=== PATIENT | female | born 1985 | race Caucasian/White ===

== ENCOUNTER 2018-03-08 05:45 | Inpatient (IN) | payer BC ==
[2018-03-07 15:45] VITALS: BMI 43.9
[2018-03-08] MEDS ORDERED: CITRIC ACID-SODIUM CITRATE 15 ML CUP PO ONE (06:03)
[2018-03-08] MEDS ORDERED: LACTATED RINGERS 1,000 ML IV ONE (06:03)
[2018-03-08 06:25] LABS: Basophils % (A) 0 %; Eosinophils # (A) 0.1 k/uL (0-0.7); Eosinophils % (A) 1 %; HGB 11.8 gm/dL (11.4-16.0); Lymphocytes # (A) 1.5 k/uL (1.0-4.8); Lymphocytes % (A) 14 %; MCH 28.8 pg (25.0-35.0); MCHC 31.9 g/dL (31.0-37.0); MCV 90.4 fL (80.0-100.0); Mean Platelet Volume 7.4; Monocytes # (A) 0.4 k/uL (0-1.0); Monocytes % (A) 4 %; Neutrophils # (A) 8.7 k/uL (1.3-7.7); Neutrophils % (A) 80 %; Platelet Count 219 k/uL (150-450); RBC 4.09 m/uL (3.80-5.40); RDW 14.3 % (11.5-15.5); WBC 10.9 k/uL (3.8-10.6)
[2018-03-08] MEDS ORDERED: ceFAZolin IN SWFI 2 GM/20 ML SYRINGE IVP STA (06:35)
[2018-03-08] MEDS ORDERED: NALBUPHINE 10 MG/ML VIAL (10ML MDV) ONE (07:53)
[2018-03-08] MEDS ORDERED: KETOROLAC 30 MG/ML 1 ML VIAL ONE (07:53)
[2018-03-08] MEDS ORDERED: OXYTOCIN 10 UNIT/ML 1 ML VIAL ONE (07:53)
[2018-03-08] MEDS ORDERED: MORPHINE SULFATE (PF) 0.3 MG/0.3 ML SYR ONE (07:53)
[2018-03-08] MEDS ORDERED: ONDANSETRON 4 MG/2 ML VIAL ONE (07:53)
[2018-03-08] MEDS ORDERED: Rhogam IMMUNE GLOBULIN 1,500 UNIT/1 ML IM ONE (08:45)
[2018-03-08] MEDS ORDERED: METOCLOPRAMIDE 5 MG/ML 2 ML VIAL IVP PRN (08:45)
[2018-03-08] MEDS ORDERED: diphenhydrAMINE 50 MG/ML 1 ML VIAL IVP PRN (08:45)
[2018-03-08] MEDS ORDERED: ZOLPIDEM 5 MG TAB PO PRN (08:45)
[2018-03-08] MEDS ORDERED: OXYTOCIN 20 UNITS/1000 ML NS 1,000 ML IV SCH (08:45)
[2018-03-08] MEDS ORDERED: ACETAMINOPHEN TAB 325 MG TAB PO PRN (08:45)
[2018-03-08] MEDS ORDERED: diphenhydrAMINE 50 MG CAP PO PRN (08:45)
[2018-03-08] MEDS ORDERED: NALOXONE 0.4 MG/ML 1 ML VIAL IV PRN (08:45)
[2018-03-08] MEDS ORDERED: diphenhydrAMINE 25 MG CAP PO PRN (08:45)
[2018-03-08] MEDS ORDERED: LANOLIN CREAM 5 GM TUBE TOPICAL PRN (08:45)
[2018-03-08] MEDS ORDERED: ONDANSETRON 4 MG/2 ML VIAL IVP PRN (08:45)
[2018-03-08] MEDS ORDERED: SIMETHICONE 80 MG CHEWABLE PO PRN (08:45)
--- NOTE | 2018-03-08 08:51 | P.HPOB ---
History of Present Illness H&P Date: 03/08/18 Chief Complaint: Macrosomia 32-year-old presents at 39 weeks for primary low transverse for macrosomia. Ultrasounds for the last 2 months have shown that the baby is over the 90th percentile for weight. Review of Systems All systems: negative Constitutional: Denies chills, Denies fever Eyes: denies blurred vision, denies pain Ears, nose, mouth and throat: Denies headache, Denies sore throat Cardiovascular: Denies chest pain, Denies shortness of breath Respiratory: Denies cough Gastrointestinal: Denies abdominal pain, Denies diarrhea, Denies nausea, Denies vomiting Genitourinary: Denies dysuria, Denies hematuria Musculoskeletal: Denies myalgias Integumentary: Denies pruritus, Denies rash Neurological: Denies numbness, Denies weakness Psychiatric: Denies anxiety, Denies depression Endocrine: Denies fatigue, Denies weight change Past Medical History Past Medical History: No Reported History Additional Past Medical History / Comment(s): Obstetric history: This is her first and she's had care with me since 8 weeks gestation. Blood type was A-, antibodies negative, rubella immune, RPR nonreactive, hepatitis B negative. She did receive program on December 26 at 28 weeks and 5 days. Normal 1 hour glucose tolerance test. History of Any Multi-Drug Resistant Organisms: None Reported Additional Past Surgical History / Comment(s): LEEP procedure Past Anesthesia/Blood Transfusion Reactions: Motion Sickness Past Psychological History: No Psychological Hx Reported Smoking Status: Never smoker Past Alcohol Use History: None Reported Past Drug Use History: None Reported - Past Family History Mother Family Medical History: Thyroid Disorder Medications and Allergies Home Medications Medication Instructions Recorded Confirmed Type Pnv No.95/Ferrous Fum/Folic AC 1 each PO DAILY 03/07/18 03/08/18 History [ Multivitamin Tablet] Allergies Allergy/AdvReac Type Severity Reaction Status Date / Time Penicillins Allergy Rash/Hives Verified 03/08/18 06:02 Exam Osteopathic Statement: *. No significant issues noted on an osteopathic structural exam other than those noted in the History and Physical/Consult. Vital Signs Temp Pulse Resp BP Pulse Ox 03/08/18 06:02 96.9 F L 91 16 127/78 99 Intake and Output 03/07/18 03/08/1803/08/18 22:59 06:59 14:59 Other: Weight 108.862 kg 108.862 kg Heart: Regular rate and rhythm Lungs: Clear to auscultation bilaterally Abdomen: Soft, nontender Extremities: Negative Homans sign Results Result Diagrams: 03/08/18 06:10 Abnormal Lab Results - Last 24 Hours (Table) 03/08/18 Range/Units 06:10 WBC 10.9 H (3.8-10.6) k/uL Neutrophils # 8.7 H (1.3-7.7) k/uL Assessment and Plan (1) Macrosomia affecting management of mother Current Visit: Yes Status: Acute Code(s): O36.60X0 - MATERNAL CARE FOR EXCESS GROWTH, UNSP TRIMESTER, UNSP SNOMED Code(s): 84098192 (2) 39 weeks gestation of Current Visit: Yes Status: Acute Code(s): Z3A.39 - 39 WEEKS GESTATION OF SNOMED Code(s): 39853149 Plan: 1. primary low transverse
--- NOTE | 2018-03-08 08:53 | P.OP ---
Date of Procedure: 03/08/18 Preoperative Diagnosis: 1. at 39 weeks 2. Macrosomia Postoperative Diagnosis: Same Procedure(s) Performed: Primary low transverse Anesthesia: spinal Surgeon: Damaris Ring Still Operator Brandy #1: Richardson Huddleston Estimated Blood Loss (ml): 600 IV fluids (ml): 800 Urine output (ml): 300 Pathology: none sent Condition: stable Disposition: floor Operative Findings: Normal uterus, tubes, ovaries. Viable male, Apgars 9, 9, weight 8 lbs. 11 oz. Description of Procedure: Patient was taken to the operating room where spinal anesthesia was found be adequate. She was prepped and draped in normal sterile fashion in dorsal supine position with a leftward tilt. Pfannenstiel skin incision was made the scalpel and carried through to the underlying layer of fascia with the scalpel. Fascia was incised in midline and carried bilaterally with the Moreno scissors. The superior aspect of the fascial incision was grasped with Yoel clamps elevated and the underlying rectus muscles dissected off with the Moreno's. Attention was then turned to inferior aspect of same incision which in a similar fashion was grasped tented up and the underlying rectus muscles dissected off with the Moreno's. The rectus muscles were the midline and the peritoneum was identified tented up and entered sharply with the scalpel. The incision was extended superiorly and inferiorly with good visualization of the bladder. The bladder blade was inserted and the vesicouterine peritoneum was incised the Metzenbaums then carried bilaterally and bladder flap created digitally. A low transverse incision was then made on the uterus with the scalpel. This was carried bilaterally and digital manner. 's head delivered atraumatically, nose and mouth bulb suctioned, cord clamped and cut, infant handed off to waiting nurses. Apgars 9,9, weight 8 lbs. [11 oz. Placenta delivered manually, intact with three-vessel cord. The uterus is exteriorized and cleared of all clots and debris. The uterine incision was closed with 0 Vicryl in a running locked fashion. Second layer of the same sutures used in imbricating fashion to obtain excellent hemostasis. Both ovaries and tubes appeared normal. The uterus was placed back into the abdomen. The peritoneum was reapproximated using 2-0 Vicryl in a running fashion. The muscles were reapproximated using 2-0 Vicryl in interrupted fashion. The fascia was reapproximated using 0 Vicryl in a running fashion. The subcutaneous tissues closed with 3-0 Vicryl running fashion. The skin was closed cameron. Patient tolerated the procedure well, sponge and instrument counts were correct times 2 and she was taken to the recovery room in stable condition.
[2018-03-08] MEDS: LACTATED RINGERS 1,000 ML IV SCH ×2 (13:43→22:03)
[2018-03-08] MEDS: KETOROLAC 30 MG/ML 1 ML VIAL IVP PRN ×2 (15:06→20:46)
[2018-03-08] MEDS: SENNOSIDES-DOCUSATE SODIUM 1 EACH TAB PO SCH (20:46)
[2018-03-08] MEDS: diphenhydrAMINE 50 MG/ML 1 ML VIAL IVP PRN ×2 (21:08→22:46)
[2018-03-09] MEDS: KETOROLAC 30 MG/ML 1 ML VIAL IVP PRN (03:00)
--- NOTE | 2018-03-09 07:27 | P.PNOBGPC ---
Subjective - Subjective Principal diagnosis: S/P 1*LTCS POD #1 Interval history: Pt seen and examined. Denies N/V, F/C, CP, SOB, calf pain. Patient reports: Reports appetite normal, Reports voiding normally, Reports pain well controlled, Reports ambulating normally [place]: doing well Objective - Vital Signs Latest vital signs: Vital Signs Temp Pulse Resp BP Pulse Ox 03/09/18 04:49 98.0 F 86 18 118/72 03/09/18 00:00 98.2 F 81 16 111/66 03/08/18 20:00 98.2 F 83 18 130/60 98 03/08/18 15:16 97.9 F 92 18 121/65 99 03/08/18 10:42 96.7 F L 100 18 125/60 98 03/08/18 10:12 96.8 F L 84 18 119/67 03/08/18 09:42 92 18 112/60 98 03/08/18 09:27 81 18 126/83 98 03/08/18 09:12 97.3 F L 92 18 105/66 96 03/08/18 08:57 107 H 18 101/64 03/08/18 08:42 96.6 F L 88 18 94/59 95 Intake and Output 03/08/18 03/09/18 03/09/18 22:59 06:59 14:59 Output Total 400 200 Balance -400 -200 Output: Urine 400 200 Other: Voiding Method Indwelling Catheter # Voids 1 1 - Exam Lungs: bilateral: normal Chest: Normal S1, Normal S2 Extremities: Present: normal Abdomen: Present: normal appearance, soft. Absent: distention, tenderness Incision: Present: normal, dry, intact Uterus: Present: normal, firm Assessment and Plan (1) Macrosomia affecting management of mother Current Visit: Yes Status: Resolved Code(s): O36.60X0 - MATERNAL CARE FOR EXCESS GROWTH, UNSP TRIMESTER, UNSP SNOMED Code(s): 45489714 (2) 39 weeks gestation of Current Visit: Yes Status: Resolved Code(s): Z3A.39 - 39 WEEKS GESTATION OF SNOMED Code(s): 79854934 (3) Status post primary low transverse section Current Visit: Yes Status: Acute Code(s): Z98.891 - HISTORY OF UTERINE SCAR FROM PREVIOUS SURGERY SNOMED Code(s): 731697990 Plan: 1. increase ambulation 2. po pain meds 3. reg diet
[2018-03-09 07:54] LABS: Basophils % (A) 0 %; Eosinophils # (A) 0.1 k/uL (0-0.7); Eosinophils % (A) 1 %; HCT 30.6 % (34.0-46.0); Hypochromasia Slight; Lymphocytes # (A) 1.1 k/uL (1.0-4.8); Lymphocytes % (A) 12 %; MCH 29.5 pg (25.0-35.0); MCHC 31.5 g/dL (31.0-37.0); MCV 93.5 fL (80.0-100.0); Mean Platelet Volume 7.7; Monocytes # (A) 0.4 k/uL (0-1.0); Monocytes % (A) 5 %; Neutrophils # (A) 7.6 k/uL (1.3-7.7); Neutrophils % (A) 82 %; Platelet Count 183 k/uL (150-450); RBC 3.27 m/uL (3.80-5.40); RDW 14.6 % (11.5-15.5); WBC 9.3 k/uL (3.8-10.6)
[2018-03-09] MEDS: HYDROcodone/APAP 7.5-325MG 1 EACH TAB PO PRN ×3 (08:02→20:48)
[2018-03-09 08:25] LABS: HGB 9.6 gm/dL (11.4-16.0)
--- NOTE | 2018-03-09 09:34 | P.PN ---
Progress Note - Text Progress Note Date: 03/09/18 Postoperative day 1 status post section under spinal anesthesia, and intrathecal morphine given for postoperative analgesia, patient doing well, there is no anesthesia related complications, Patient had no headache, vital signs stable , Assessment and plan= postop day 1 status post , doing well there is no anesthesia related complication.
[2018-03-09] MEDS: IBUPROFEN 600 MG TAB PO PRN ×3 (11:32→23:14)
[2018-03-09] MEDS: SENNOSIDES-DOCUSATE SODIUM 1 EACH TAB PO SCH ×2 (12:57→20:50)
[2018-03-09] MEDS: LACTATED RINGERS 1,000 ML IV SCH ×4 (14:46→14:48)
[2018-03-09 16:33] VITALS: TEMP 98.3
[2018-03-10] MEDS: HYDROcodone/APAP 7.5-325MG 1 EACH TAB PO PRN ×2 (02:14→08:56)
[2018-03-10] MEDS: IBUPROFEN 600 MG TAB PO PRN (06:29)
[2018-03-10 08:12] VITALS: BP 114/63; PULSE 81; RESP 18
--- NOTE | 2018-03-10 08:23 | P.DS ---
Providers Date of admission: 03/08/18 05:45 Expected date of discharge: 03/10/18 Attending physician: Damaris Ring Primary care physician: Stated None - Discharge Diagnosis(es) (1) Macrosomia affecting management of mother Current Visit: Yes Status: Resolved (2) 39 weeks gestation of Current Visit: Yes Status: Resolved (3) Status post primary low transverse section Current Visit: Yes Status: Acute Hospital Course: Patient presented for primary low transverse due to macrosomia. She underwent this procedure without crepitation. She'll be discharged home day #2 in stable condition to follow-up with me in 3 weeks. Plan - Discharge Summary New Discharge Prescriptions: New HYDROcodone/APAP 7.5-325MG [[place] 7.5-325] 1 each PO Q6H PRN #18 tab PRN Reason: Severe Pain Ibuprofen [Motrin] 600 mg PO Q6HR PRN #30 tab PRN Reason: Mild Pain Or Fever >= 100.5 No Action Pnv No.95/Ferrous Fum/Folic AC [ Multivitamin Tablet] 1 each PO DAILY Discharge Medication List Pnv No.95/Ferrous Fum/Folic AC [ Multivitamin Tablet] 1 each PO DAILY [History] HYDROcodone/APAP 7.5-325MG [[place] 7.5-325] 1 each PO Q6H PRN #18 tab 03/10/18 [ Rx] Ibuprofen [Motrin] 600 mg PO Q6HR PRN #30 tab 03/10/18 [Rx] Follow up Appointment(s)/Referral(s): Damaris Ring DO [Doctor of Osteopathic Medicine] - 3 Weeks Discharge Disposition: HOME SELF-CARE
[2018-03-10] MEDS: SENNOSIDES-DOCUSATE SODIUM 1 EACH TAB PO SCH (08:56)
== END 2018-03-10 11:30 | disposition home or self-care (01) | DRG 788 ==
LOC: 4FBP 05:45
PROVIDERS: ADMIT Obstetrics & Gynecology; ATTEND Obstetrics & Gynecology
PROC: 10D00Z1 Extraction of Products of Conception, Low, Open Approach (ICD-10-PCS; principal; 2018-03-08 08:00)
DX: O36.63X0 Maternal care for excessive fetal growth, third trimester, not applicable or unspecified (principal); Z37.0 Single live birth; Z3A.39 39 weeks gestation of pregnancy; Z88.0 Allergy status to penicillin; Z83.49 Family history of other endocrine, nutritional and metabolic diseases
CPT/HCPCS: 85025; 85461; 86850; 86870; 86880; 86900; 86901

== ENCOUNTER → 2018-07-06 | Outpatient (CLI) | payer OTHER | END | disposition home or self-care (01) | LOC: LABWHC1 13:14 | PROVIDERS: ATTEND Family Medicine | DX: Z00.00 Encounter for general adult medical examination without abnormal findings (principal); E66.9 Obesity, unspecified; Z84.89 Family history of other specified conditions | CPT/HCPCS: 36415; 84439; 84443 ==

== ENCOUNTER 2019-04-02 21:37 | Emergency (ER) | payer OTHER ==
[2019-04-02 21:47] VITALS: RESP 18
[2019-04-02] MEDS ORDERED: FAMOTIDINE 20 MG/2 ML VIAL IV STA (21:55)
[2019-04-02] MEDS ORDERED: methylPREDNISolone SOD SUCCI 125 MG/2 ML VIAL IV STA (21:55)
[2019-04-02] MEDS ORDERED: diphenhydrAMINE 50 MG/ML 1 ML VIAL IVP STA (21:55)
[2019-04-02] MEDS ORDERED: SODIUM CHLORIDE 0.9% 1,000 ML IV ONE (21:56)
[2019-04-02 22:19] LABS: Basophils % (A) 0 %; Eosinophils # (A) 0.1 k/uL (0-0.7); Eosinophils % (A) 1 %; HCT 38.7 % (34.0-46.0); HGB 12.6 gm/dL (11.4-16.0); Lymphocytes # (A) 3.7 k/uL (1.0-4.8); Lymphocytes % (A) 26 %; MCH 27.8 pg (25.0-35.0); MCHC 32.5 g/dL (31.0-37.0); MCV 85.8 fL (80.0-100.0); Mean Platelet Volume 6.3; Monocytes # (A) 0.7 k/uL (0-1.0); Monocytes % (A) 5 %; Neutrophils # (A) 9.5 k/uL (1.3-7.7); Neutrophils % (A) 67 %; Platelet Count 334 k/uL (150-450); RBC 4.51 m/uL (3.80-5.40); RDW 14.3 % (11.5-15.5); WBC 14.2 k/uL (3.8-10.6)
[2019-04-02 22:22] LABS: ALT 14 U/L (9-52); AST 19 U/L (14-36); African American GFR (CKD) >90 (>60 ml/min/1.73 sqM); Albumin 4.7 g/dL (3.5-5.0); Alkaline Phosphatase 55 U/L (38-126); Anion Gap 10 mmol/L; Blood Urea Nitrogen 19 mg/dL (7-17); Carbon Dioxide 22 mmol/L (22-30); Chloride 106 mmol/L (98-107); Glucose 107 mg/dL (74-99); Potassium 4.2 mmol/L (3.5-5.1); Sodium 138 mmol/L (137-145); Total Bilirubin 0.5 mg/dL (0.2-1.3); Total Protein 7.9 g/dL (6.3-8.2)
--- NOTE | 2019-04-02 22:38 | ED ---
Allergic Reaction HPI - General Chief complaint: Allergic Reaction Stated complaint: Allergic Reaction Time Seen by Provider: 04/02/19 21:48 Source: patient, RN notes reviewed Mode of arrival: ambulatory Limitations: no limitations - History of Present Illness Initial Comments: 33-year-old female presents emergency Department chief complaint ALLERGIC re action. Patient states his started overnight states in [place] night she fell. She woke up with diffuse hives. Patient has been seen at [facility] was given a dose of steroid chest pain. Patient's symptoms worsen today. Patient states that she also recently took Vistaril. Patient states that is not helping this time. Patient has a rash, hives diffusely. No difficulty swallowing or difficulty breathing. - Related Data Home Medications Medication Instructions Recorded Confirmed Pnv No.95/Ferrous Fum/Folic AC 1 each PO DAILY 03/07/18 03/08/18 [ Multivitamin Tablet] Previous Rx's Medication Instructions Recorded HYDROcodone/APAP 7.5-325MG [[place] 1 each PO Q6H PRN #18 tab 03/10/18 7.5-325] Ibuprofen [Motrin] 600 mg PO Q6HR PRN #30 tab 03/10/18 Famotidine [Pepcid] 20 mg PO BID #28 tablet 04/02/19 diphenhydrAMINE [Benadryl] 50 mg PO QID PRN #20 capsule 04/02/19 predniSONE 50 mg PO DAILY #5 tab 04/02/19 Allergies Allergy/AdvReac Type Severity Reaction Status Date / Time Penicillins Allergy Rash/Hives Verified 03/08/18 06:02 Review of Systems ROS Statement: Those systems with pertinent positive or pertinent negative responses have been documented in the HPI. ROS Other: All systems not noted in ROS Statement are negative. Past Medical History Past Medical History: No Reported History Additional Past Medical History / Comment(s): Obstetric history: This is her first and she's had care with me since 8 weeks gestation. Blood type was A-, antibodies negative, rubella immune, RPR nonreactive, hepati tis B negative. She did receive program on December 26 at 28 weeks and 5 days. Normal 1 hour glucose tolerance test. History of Any Multi-Drug Resistant Organisms: None Reported Additional Past Surgical History / Comment(s): LEEP procedure Past Anesthesia/Blood Transfusion Reactions: Motion Sickness Past Psychological History: No Psychological Hx Reported Smoking Status: Never smoker Past Alcohol Use History: None Reported Past Drug Use History: None Reported - Past Family History Mother Family Medical History: Thyroid Disorder General Exam Limitations: no limitations General appearance: alert, in no apparent distress Head exam: Present: atraumatic, normocephalic, normal inspection Eye exam: Present: normal appearance, PERRL, EOMI. Absent: scleral icterus, conjunctival injection, periorbital swelling ENT exam: Present: normal exam, normal oropharynx, mucous membranes moist Neck exam: Present: normal inspection, full ROM. Absent: tenderness, meningismus, lymphadenopathy Respiratory exam: Present: normal lung sounds bilaterally. Absent: respiratory distress, wheezes, rales, rhonchi, stridor Cardiovascular Exam: Present: regular rate, normal rhythm, normal heart sounds. Absent: systolic murmur, diastolic murmur, rubs, gallop, clicks GI/Abdominal exam: Present: soft, normal bowel sounds. Absent: distended, te nderness, guarding, rebound, rigid Back exam: Absent: CVA tenderness (R), CVA tenderness (L) Neurological exam: Present: alert, oriented X3 Skin exam: Present: warm, dry, intact, normal color, rash, urticaria Course Vital Signs 04/02/19 21:41 Temperature 97.7 F Pulse Rate 81 Respiratory 18 Rate Blood Pressure 144/72 O2 Sat by Pulse 99 Oximetry Medical Decision Making - Medical Decision Making 33-year-old female presented for urticaria. Patient had diffuse urticaria patient is improved Mental Pepcid and Benadryl. Patient Is Having Moderate Reaction at This Time. Patient Will Be Discharged with Prednisone 50 Mg Daily, Benadryl 50 Mg Every 6 Hours, Pepcid Twice a Day and Parameters Were Discussed. - Lab Data Result diagrams: 04/02/19 22:05 04/02/19 22:05 Lab Results 04/02/19 04/02/19 Range/Units 22:05 22:05 WBC 14.2 H (3.8-10.6) k/uL RBC 4.51 (3.80-5.40) m/uL Hgb 12.6 (11.4-16.0) gm/dL Hct 38.7 (34.0-46.0) % MCV 85.8 (80.0-100.0) fL MCH 27.8 (25.0-35.0) pg MCHC 32.5 (31.0-37.0) g/dL RDW 14.3 (11.5-15.5) % Plt Count 334 (150-450) k/uL Neutrophils % 67 % Lymphocytes % 26 % Monocytes % 5 % Eosinophils % 1 % Basophils % 0 % Neutrophils # 9.5 H (1.3-7.7) k/uL Lymphocytes # 3.7 (1.0-4.8) k/uL Monocytes # 0.7 (0-1.0) k/uL Eosinophils # 0.1 (0-0.7) k/uL Basophils # 0.0 (0-0.2) k/uL Sodium 138 (137-145) mmol/L Potassium 4.2 (3.5-5.1) mmol/L Chloride 106 (98-107) mmol/L Carbon Dioxide 22 (22-30) mmol/L Anion Gap 10 mmol/L BUN 19 H (7-17) mg/dL Creatinine 0.67 (0.52-1.04) mg/dL Est GFR (CKD-EPI)AfAm >90 (>60 ml/min/1.73 sqM) Est GFR (CKD-EPI)NonAf >90 (>60 ml/min/1.73 sqM) Glucose 107 H (74-99) mg/dL Calcium 10.0 (8.4-10.2) mg/dL Total Bilirubin 0.5 (0.2-1.3) mg/dL AST 19 (14-36) U/L ALT 14 (9-52) U/L Alkaline Phosphatase 55 (38-126) U/L Total Protein 7.9 (6.3-8.2) g/dL Albumin 4.7 (3.5-5.0) g/dL Disposition Clinical Impression: Allergic reaction, Urticaria Disposition: HOME SELF-CARE Condition: Stable Instructions (If sedation given, give patient instructions): Urticaria (ED) Additional Instructions: Please return to the Emergency Department if symptoms worsen or any other concerns. Prescriptions: diphenhydrAMINE [Benadryl] 50 mg PO QID PRN #20 capsule PRN Reason: Allergic Reaction Famotidine [Pepcid] 20 mg PO BID #28 tablet predniSONE 50 mg PO DAILY #5 tab Is patient prescribed a controlled substance at d/c from ED?: No Referrals: Song Masters DO [Primary Care Provider] - 1-2 days Time of Disposition: 23:41
[2019-04-02 23:45] VITALS: BP 119/74; PULSE 61; TEMP 98
== END 2019-04-02 23:45 | disposition home or self-care (01) ==
LOC: EC 21:37
DX: L50.0 Allergic urticaria (principal); Z88.0 Allergy status to penicillin
CPT/HCPCS: 36415; 80053; 85025; 99283; 96374; 96375 ×2; 96361; J1200; J2930

== ENCOUNTER 2020-09-26 08:16 | Emergency (ER) | payer OTHER ==
[2020-09-26] MEDS ORDERED: LIDOCAINE 1% INJ 10MG/ML (20 ML MDV) SQ ONE (08:19)
[2020-09-26 08:20] VITALS: BP 117/70; PULSE 65; RESP 20; TEMP 98
[2020-09-26] MEDS ORDERED: HYDROmorphone 0.5 MG/0.5 ML SYRINGE IM STA (08:35)
--- NOTE | 2020-09-26 08:58 | ED ---
Skin/Abscess/FB HPI - General Chief complaint: Skin/Abscess/Foreign Body Stated complaint: ingrown hair Time Seen by Provider: 09/26/20 08:19 Source: patient Mode of arrival: ambulatory Limitations: no limitations - History of Present Illness Initial comments: 35-year-old female presents emergency department today for chief complaint of pilonidal cyst. Patient states she was diagnosed yesterday with upon lateral cyst at an urgent care and prescribed Bactrim. Patient states she's had symptoms now for 5 day she states is becoming more more painful she states she can barely sit or bend over secondary to the pain she denies a fevers chills or malaise or constitutional symptoms. Upon arrival patient is afebrile nontoxic in appearance and overall well-appearing - Related Data Home Medications Medication Instructions Recorded Confirmed Pnv No.95/Ferrous Fum/Folic AC 1 each PO DAILY 03/07/18 01/31/20 [ Multivitamin Tablet] Previous Rx's Medication Instructions Recorded HYDROcodone/APAP 5-325MG [[place] 1 each PO Q4HR PRN #18 tab 02/01/20 5-325] Ibuprofen [Motrin] 600 mg PO Q6HR PRN #40 tab 02/01/20 Clindamycin [Cleocin] 450 mg PO Q8H 7 Days #63 capsule 09/26/20 Allergies Allergy/AdvReac Type Severity Reaction Status Date / Time Penicillins Allergy Rash/Hives Verified 09/26/20 08:19 Review of Systems ROS Statement: Those systems with pertinent positive or pertinent negative responses have been documented in the HPI. ROS Other: All systems not noted in ROS Statement are negative. Past Medical History Past Medical History: No Reported History Additional Past Medical History / Comment(s): Obstetric history: This is her first and she's had care with me since 8 weeks gestation. Blood type was A-, antibodies negative, rubella immune, RPR nonreactive, hepatitis B negative. She did receive program on December 26 at 28 weeks and 5 days. Normal 1 hour glucose tolerance test. History of Any Multi-Drug Resistant Organisms: None Reported Past Surgical History: Section Additional Past Surgical History / Comment(s): LEEP procedure Past Anesthesia/Blood Transfusion Reactions: Motion Sickness Past Psychological History: No Psychological Hx Reported Smoking Status: Never smoker Past Alcohol Use History: Occasional Past Drug Use History: Marijuana - Past Family History Mother Family Medical History: Thyroid Disorder General Exam - General Exam Comments Initial Comments: General: The patient is awake and alert, in no distress, and does not appear acutely ill. Eye: Pupils are equal, round and reactive to light, extra-ocular movements are intact. No nystagmus. There is normal conjunctiva bilaterally. No signs of icterus. Musculoskeletal: Normal ROM, no tenderness. Strength 5/5. Sensation intact. Pulses equal bilaterally 2+. Neurological: A&O x 3. CN II-XII intact grossly, There are no obvious motor or sensory deficits. Coordination appears grossly intact. Speech is normal. Skin: Skin is warm and dry and no rashes. 2.5x2.5cm circular area of redness just to the left of the gluteal cleft, painful to touch. Psychiatric: Cooperative, appropriate mood & affect, normal judgment. Limitations: no limitations Course Vital Signs 09/26/20 08:17 Temperature 98 F Pulse Rate 65 Respiratory 20 Rate Blood Pressure 117/70 O2 Sat by Pulse 100 Oximetry Procedures - Incision & Drainage Consent Obtained: verbal consent Indication: pilonidal cyst Site: buttock Anesthetic Used: lidocaine 1% Amount (mLs): 1 I&D Cleaning Method: Iodine Sterile Field Used?: No Scalpel Used: #11 Needle Aspiration Performed?: Yes Irrigation Performed?: No I&D Drainage Obtained: Pus, Blood Culture Obtained?: Yes Patient Tolerated Procedure: well, no complications Medical Decision Making - Medical Decision Making Physical examination consistent with previous diagnosis of pilonidal cyst. needle aspirated. incised and drained. cultures pending. pt abx regime changed. discussed general surgery f/u and return parameters. pt discharged appearing well. Disposition Clinical Impression: Pilonidal abscess Disposition: HOME SELF-CARE Condition: Good Instructions (If sedation given, give patient instructions): Abscess Incision and Drainage (ED) Additional Instructions: Please use medication as discussed. Please follow-up with family doctor in the next 2 days. Please return to emergency room if the symptoms increase or worsen or for any other concerns. Prescriptions: Clindamycin [Cleocin] 450 mg PO Q8H 7 Days #63 capsule Is patient prescribed a controlled substance at d/c from ED?: No Referrals: Song Masters DO [Primary Care Provider] - 1-2 days Nir Allen MD [Medical Doctor] - 1-2 days Time of Disposition: :57
== END 2020-09-26 09:09 | disposition home or self-care (01) ==
LOC: EC 08:16
DX: L05.01 Pilonidal cyst with abscess (principal); Z88.0 Allergy status to penicillin
CPT/HCPCS: 87070; 87205; 99283; 10160; 96372; J2001; J1170

== ENCOUNTER 2020-11-05 06:42 | Day surgery (SDC) | payer OTHER ==
[2020-10-31 12:57] VITALS: BMI 33.8
[~2020-11-05 06:42] MED LIST: ACETAMINOPHEN TAB 500 MG TAB PO PRN; HEPARIN SODIUM,PORCINE/PF 5,000 UNIT/0.5 ML SYRINGE SQ PRN; metroNIDAZOLE-NS PMX 500 MG in SALINE 1 100ML.BAG IVPB PRN
[2020-11-05] MEDS ORDERED: LIDOCAINE 1% (10MG/ML) FOR IV START INTRADERMA PRN (06:50)
[2020-11-05] MEDS ORDERED: DEXAMETHASONE SOD PHOSPHATE 4 MG/ML 1 ML VIAL IV ONE (06:50)
[2020-11-05] MEDS ORDERED: LACTATED RINGERS 1,000 ML IV SCH (06:50)
[2020-11-05] MEDS ORDERED: SCOPOLAMINE 1.5MG/72HR PATCH TRANSDERM ONE (06:50)
[2020-11-05] MEDS ORDERED: ONDANSETRON 4 MG/2 ML VIAL IVP ONE (06:50)
[2020-11-05] MEDS ORDERED: HYDROmorphone 0.5 MG/0.5 ML SYRINGE IVP PRN (07:00)
[2020-11-05] MEDS ORDERED: MIDAZOLAM 2 MG/2 ML VIAL IV ONE (07:30)
[2020-11-05 07:37] VITALS: TEMP 97.7
[2020-11-05] MEDS ORDERED: KETAMINE 10 MG/ML 20 ML VIAL ONE (08:10)
[2020-11-05] MEDS ORDERED: PROPOFOL 10 MG/ML 20 ML VIAL IV ONE (08:10)
[2020-11-05] MEDS ORDERED: MIDAZOLAM 2 MG/2 ML VIAL ONE (08:10)
[2020-11-05] MEDS ORDERED: fentaNYL (PF) 50 MCG/ML 2 ML AMP ONE (08:10)
[2020-11-05] MEDS ORDERED: LIDOCAINE 1%-EPI 1:100,000 20 ML VIAL SQ ONE ×2 (08:33→08:34)
--- NOTE | 2020-11-05 08:52 | P.GSHP ---
History of Present Illness H&P Date: 11/05/20 Chief Complaint: Pilonidal cyst 's is a 35-year-old female who presents today for excision of pilonidal cyst. Patient has had issues with chronic inflammation the area. She's had a previous incision and drainage. Past Medical History Past Medical History: No Reported History Additional Past Medical History / Comment(s): pilonidal cyst History of Any Multi-Drug Resistant Organisms: None Reported Past Surgical History: Section Additional Past Surgical History / Comment(s): LEEP procedure, C/S x2 Past Anesthesia/Blood Transfusion Reactions: Motion Sickness Smoking Status: Never smoker - Past Family History Mother Family Medical History: Thyroid Disorder Medications and Allergies Home Medications Medication Instructions Recorded Confirmed Type No Known Home Medications 10/31/20 10/31/20 History Allergies Allergy/AdvReac Type Severity Reaction Status Date / Time Penicillins Allergy Rash/Hives Verified 11/05/20 06:56 Surgical - Exam Vital Signs Temp Pulse Resp BP Pulse Ox 97.7 F 80 16 131/82 100 11/05/20 07:20 11/05/20 07:20 11/05/20 07:20 11/05/20 07:20 11/05/20 07:20 - General well developed, well nourished, no distress - Eyes PERRL - ENT normal pinna - Neck no masses - Respiratory normal expansion - Cardiovascular Rhythm: regular - Abdomen Abdomen: soft, non tender - Integumentary Upon L cyst over the coccyx Assessment and Plan Assessment: Prognosis. We'll perform excision. Patient is aware that we will be packed.
--- NOTE | 2020-11-05 08:54 | P.OP ---
Date of Procedure: 11/05/20 Preoperative Diagnosis: Pilonidal cyst Postoperative Diagnosis: Pilonidal cyst Procedure(s) Performed: Excision of pilonidal cyst Anesthesia: RADHA Surgeon: Stephen Ash Estimated Blood Loss (ml): 5 Pathology: other (Pilonidal cyst) Condition: stable Disposition: PACU Operative Findings: The patient's placed on the operative table in the prone position. She received IV sedation. Her buttocks were prepped and draped using sterile fashion. The prognosis was visualized. Elliptical skin incision was made around the pilonidal cyst. The nasal left cautery the paralysis was excised. The Bovie hemostasis. The wound was referred bleeding. There is no bleeding seen. The w ound was then packed with dry Kerlix. Patient top she will was sent to recovery room stable condition.
[2020-11-05 09:08] VITALS: RESP 16
[2020-11-05] MEDS ORDERED: IBUPROFEN 200 MG TAB PO ONE (09:44)
[2020-11-05 09:52] VITALS: BP 106/58; PULSE 69
== END 2020-11-05 09:57 | disposition home health service (06) ==
LOC: OR 06:42
PROVIDERS: ATTEND Surgery
DX: L05.91 Pilonidal cyst without abscess (principal); Z98.891 History of uterine scar from previous surgery; Z98.890 Other specified postprocedural states; Z83.49 Family history of other endocrine, nutritional and metabolic diseases; Z88.0 Allergy status to penicillin
CPT/HCPCS: 81025; 88304; 11770; J2250; J1100; J0690; J2405; J3010; J2704; J1644

== ENCOUNTER 2021-12-04 12:29 | Emergency (ER) | payer OTHER ==
[2021-12-04 13:36] VITALS: RESP 18
[2021-12-04 18:21] LABS: ALT 13 U/L (4-34); AST 34 U/L (14-36); African American GFR (CKD) >90 (>60 ml/min/1.73 sqM); Albumin 5.1 g/dL (3.5-5.0); Alkaline Phosphatase 41 U/L (38-126); Anion Gap 10 mmol/L; Blood Urea Nitrogen 18 mg/dL (7-17); Calcium 9.3 mg/dL (8.4-10.2); Carbon Dioxide 22 mmol/L (22-30); Chloride 105 mmol/L (98-107); Glucose 86 mg/dL (74-99); Non-African American GFR(CKD) >90 (>60 ml/min/1.73 sqM); Potassium 4.4 mmol/L (3.5-5.1); Sodium 137 mmol/L (137-145); Total Bilirubin 0.8 mg/dL (0.2-1.3); Total Protein 8.3 g/dL (6.3-8.2)
[2021-12-04 18:23] LABS: Anisocytosis Slight; Basophils % (A) 0 %; Eosinophils # (A) 0.1 k/uL (0-0.7); Eosinophils % (A) 2 %; HCT 29.9 % (34.0-46.0); HGB 8.5 gm/dL (11.4-16.0); Hypochromasia Marked; Lymphocytes # (A) 1.9 k/uL (1.0-4.8); Lymphocytes % (A) 34 %; MCH 19.3 pg (25.0-35.0); MCHC 28.5 g/dL (31.0-37.0); MCV 67.8 fL (80.0-100.0); Mean Platelet Volume 10.1; Microcytosis Marked; Monocytes # (A) 0.3 k/uL (0-1.0); Monocytes % (A) 6 %; Neutrophils # (A) 3.1 k/uL (1.3-7.7); Neutrophils % (A) 56 %; Platelet Count 107 k/uL (150-450); RBC 4.41 m/uL (3.80-5.40); WBC 5.6 k/uL (3.8-10.6)
[2021-12-04 18:32] VITALS: BP 119/77; PULSE 73; TEMP 97.7
--- NOTE | 2021-12-04 18:45 | ED ---
General Adult HPI - General Chief complaint: Recheck/Abnormal Lab/Rx Stated complaint: "needs blood infusion" Time Seen by Provider: 12/04/21 14:42 Source: patient Mode of arrival: ambulatory Limitations: no limitations - History of Present Illness Initial comments: Patient is a 36 year old otherwise healthy female who presents to the emergency department for evaluation of low hemoglobin. Patient states was advised to come to the emergency department via phone call with hemoglobin results around 7. Patient states she got her blood drawn at her primary care provider's office a couple days ago due to feeling lightheaded over the past couple weeks with 2 syncopal episodes. Patient states during the first episode she was sitting in sauna and during the second episode she had just finished walking with her kids. Patient denies head trauma during these episodes. Patient states during these episodes she feels lightheaded and dizzy. She does not feel lightheaded or dizzy currently. She denies chest pain and shortness of breath. Denies history of arrhythmia and other cardiac issues. Denies rash on family history of blood disorders. Denies abdominal pain, nausea, vomiting, blood in the stool, blood in the urine. Patient does admit to having very heavy periods last 4 or 5 days. States she has never been diagnosed with anemia before. - Related Data Previous Rx's Medication Instructions Recorded Acetaminophen Tab [Tylenol] 650 mg PO Q6H #30 tab 11/05/20 Docusate [Colace] 100 mg PO BID #20 capsule 11/05/20 Ibuprofen [Motrin] 600 mg PO Q6HR PRN #40 tab 11/05/20 oxyCODONE HCL [OxyIR] 5 mg PO Q6H PRN 3 Days #10 tab 11/05/20 Allergies Allergy/AdvReac Type Severity Reaction Status Date / Time Penicillins Allergy Rash/Hives Verified 12/04/21 13:36 Review of Systems ROS Statement: Those systems with pertinent positive or pertinent negative responses have been documented in the HPI. ROS Other: All systems not noted in ROS Statement are negative. Past Medical History Past Medical History: No Reported History Additional Past Medical History / Comment(s): pilonidal cyst History of Any Multi-Drug Resistant Organisms: None Reported Past Surgical History: Section Additional Past Surgical History / Comment(s): LEEP procedure, C/S x2 Past Anesthesia/Blood Transfusion Reactions: Motion Sickness Past Psychological History: No Psychological Hx Reported Smoking Status: Never smoker Past Alcohol Use History: None Reported Past Drug Use History: Marijuana - Past Family History Mother Family Medical History: Thyroid Disorder General Exam Limitations: no limitations General appearance: alert, in no apparent distress Head exam: Present: atraumatic, normocephalic, normal inspection Respiratory exam: Present: normal lung sounds bilaterally. Absent: respiratory distress, wheezes, rales, rhonchi, stridor Cardiovascular Exam: Present: regular rate, normal rhythm, normal heart sounds. Absent: systolic murmur, diastolic murmur, rubs, gallop, clicks GI/Abdominal exam: Present: soft, normal bowel sounds. Absent: distended, tenderness, guarding, rebound, rigid Rectal exam: Present: hemorrhoids (external ). Absent: heme (+) stool, fecal impaction Neurological exam: Present: alert, oriented X3, CN II-XII intact Psychiatric exam: Present: normal affect, normal mood Skin exam: Present: warm, dry, intact, normal color. Absent: rash Course Vital Signs 12/04/21 12/04/21 13:33 18:29 Temperature 98.7 F 97.7 F Pulse Rate 81 73 Respiratory 18 18 Rate Blood Pressure 140/73 119/77 O2 Sat by Pulse 100 100 Oximetry EKG Findings - EKG Comments: EKG Findings:: EKG taken at 17:33. Sinus rhythm, no ST or T-wave normalities. Educate 79. OH interval 128. QRS duration 85. QTc 406 Medical Decision Making - Medical Decision Making This is a 36-year-old female who presents for evaluation of low hemoglobin and syncopal episodes. Thorough history and examination were performed. Patient is well-appearing and in no apparent distress. There is no pallor. No hematemesis, hematochezia, or melena. Patient admits to having very heavy menstrual periods. Patient is feeling well now without any lightheadedness, dizziness, chest pain, shortness of breath. Laboratory studies significant for microcytic hypochromic anemia with hemoglobin 8.5, decreased from patient's last hemoglobin in January 2020 at 9.9. Hemoglobin is negative. EKG shows normal sinus rhythm without ST or T-wave abnormalities. Results discussed with patient. Patient is well appearing, feels well, and has stable hemoglobin. Symptoms maybe due to menorrhagia or iron deficiency. She will be discharged with instruction to follow-up with her primary care provider for further evaluation and management of her low hemoglobin. Strict return parameters discussed. Patient verbalizes understanding and is agreeable to this plan. Dr. Blakely is my attending. - Lab Data Result diagrams: 12/04/21 17:31 12/04/21 17:31 Lab Results 12/04/21 12/04/21 12/04/21 Range/Units 17:31 17:31 17:31 WBC 5.6 (3.8-10.6) k/uL RBC 4.41 (3.80-5.40) m/uL Hgb 8.5 L (11.4-16.0) gm/dL Hct 29.9 L (34.0-46.0) % MCV 67.8 L (80.0-100.0) fL MCH 19.3 L (25.0-35.0) pg MCHC 28.5 L (31.0-37.0) g/dL RDW 18.0 H (11.5-15.5) % Plt Count 107 L (150-450) k/uL MPV 10.1 Neutrophils % 56 % Lymphocytes % 34 % Monocytes % 6 % Eosinophils % 2 % Basophils % 0 % Neutrophils # 3.1 (1.3-7.7) k/uL Lymphocytes # 1.9 (1.0-4.8) k/uL Monocytes # 0.3 (0-1.0) k/uL Eosinophils # 0.1 (0-0.7) k/uL Basophils # 0.0 (0-0.2) k/uL Hypochromasia Marked Anisocytosis Slight Microcytosis Marked Sodium 137 (137-145) mmol/L Potassium 4.4 (3.5-5.1) mmol/L Chloride 105 (98-107) mmol/L Carbon Dioxide 22 (22-30) mmol/L Anion Gap 10 mmol/L BUN 18 H (7-17) mg/dL Creatinine 0.49 L (0.52-1.04) mg/dL Est GFR (CKD-EPI)AfAm >90 (>60 ml/min/1.73 sqM) Est GFR (CKD-EPI)NonAf >90 (>60 ml/min/1.73 sqM) Glucose 86 (74-99) mg/dL Calcium 9.3 (8.4-10.2) mg/dL Total Bilirubin 0.8 (0.2-1.3) mg/dL AST 34 (14-36) U/L ALT 13 (4-34) U/L Alkaline Phosphatase 41 (38-126) U/L Total Protein 8.3 H (6.3-8.2) g/dL Albumin 5.1 H (3.5-5.0) g/dL Stool Occult Blood Negative (Negative) Disposition Clinical Impression: Microcytic hypochromic anemia Disposition: HOME SELF-CARE Condition: Good Instructions (If sedation given, give patient instructions): Anemia (ED) Additional Instructions: Please follow-up with primary care provider for further evaluation of low hemoglobin. Return to the emergency department if you experience new, concerning, or worsening symptoms. Is patient prescribed a controlled substance at d/c from ED?: No Referrals: Duke Polanco DO [Primary Care Provider] - 1-2 days Time of Disposition: 18:44
== END 2021-12-04 19:08 | disposition home or self-care (01) ==
LOC: EC 12:29
DX: D50.9 Iron deficiency anemia, unspecified (principal); Z88.0 Allergy status to penicillin
CPT/HCPCS: 36415; 80053; 82272; 85025; 93005; 99283

== ENCOUNTER → 2021-12-22 | Outpatient (CLI) | payer OTHER ==
--- NOTE | 2021-12-22 15:02 | US ---
EXAMINATION TYPE: US pelvic complete DATE OF EXAM: 12/22/2021 COMPARISON: NONE CLINICAL HISTORY: N92.0 Excessive and frequent menstruation with reg. heavy cycles, passing out due t o blood loss TECHNIQUE: TA. Transabdominal sonographic images of the pelvis were acquired. Date of LMP: 12-15-21 EXAM MEASUREMENTS: Uterus: 9.5 cm Endometrial Stripe: 1.1 cm Right Ovary: 1.7 x 2.0 x 1.3 cm Left Ovary: 3.0 x 2.3 x 2.2 cm 1. Uterus: Anteverted wnl 2. Endometrium: 2.5 x 2.2 x 1.2cm obvious polyp with vascular stalk seen 3. Right Ovary: wnl 4. Left Ovary: 2.3 x 1.8 x 1.6cm cystic area 5. Bilateral Adnexa: wnl 6. Posterior cul-de-sac: wnl IMPRESSION: 1. There is a 2.5 cm endometrial polyp. APPEALS REPRESENTATIVE consultation suggested. 2. Simple appearing 2.3 cm left ovarian cyst.
== END | disposition home or self-care (01) ==
LOC: RADUSWWP 14:11
PROVIDERS: ATTEND Family Medicine
DX: N92.0 Excessive and frequent menstruation with regular cycle (principal); N83.202 Unspecified ovarian cyst, left side
CPT/HCPCS: 76856

== ENCOUNTER 2022-01-12 06:08 | Day surgery (SDC) | payer OTHER ==
[2022-01-08 16:00] VITALS: BMI 28.5
--- NOTE | 2022-01-12 00:01 | P.HPOB ---
History of Present Illness H&P Date: 01/11/22 Chief Complaint: Menorrhagia 36 year old presents for D&C polypectomy, hysteroscopy and endometrial ablation with NovaSure. Review of Systems All systems: negative Constitutional: Denies chills, Denies fever Eyes: denies blurred vision, denies pain Ears, nose, mouth and throat: Denies headache, Denies sore throat Cardiovascular: Denies chest pain, Denies shortness of breath Respiratory: Denies cough Gastrointestinal: Denies abdominal pain, Denies diarrhea, Denies nausea, Denies vomiting Genitourinary: Denies dysuria, Denies hematuria Musculoskeletal: Denies myalgias Integumentary: Denies pruritus, Denies rash Neurological: Denies numbness, Denies weakness Psychiatric: Denies anxiety, Denies depression Endocrine: Denies fatigue, Denies weight change Past Medical History Past Medical History: No Reported History Additional Past Medical History / Comment(s): pilonidal cyst., menorrhagia, anemic -received 2 iron infusions . History of Any Multi-Drug Resistant Organisms: None Reported Past Surgical History: Section Additional Past Surgical History / Comment(s): LEEP procedure, C/S x2., pilonidal cyst Past Anesthesia/Blood Transfusion Reactions: Postoperative Nausea & Vomiting (PONV) Additional Past Anesthesia/Blood Transfusion Reaction / Comment(s): occasional rash post-op. never received a blood transfusion Past Psychological History: No Psychological Hx Reported Smoking Status: Former smoker Past Alcohol Use History: Rare Additional Past Alcohol Use History / Comment(s): quit smoking 5 years ago (2017), hx of 1 ppd. Past Drug Use History: Marijuana Additional Drug Use History / Comment(s): daily use - Past Family History Mother Family Medical History: Thyroid Disorder Medications and Allergies Home Medications Medication Instructions Recorded Confirmed Type Ibuprofen [Motrin] 800 mg PO DIRECTED PRN 01/08/22 01/08/22 History Multivit/Iron Sulf/Folic Acid 1 each PO DAILY 01/08/22 01/08/22 History [Multivitamin with Iron] Allergies Allergy/AdvReac Type Severity Reaction Status Date / Time Penicillins Allergy Rash/Hives Verified 01/08/22 15:50 Exam Osteopathic Statement: *. No significant issues noted on an osteopathic structural exam other than those noted in the History and Physical/Consult. Heart: Regular rate and rhythm Lungs: Clear to auscultation bilaterally Abdomen: Soft, nontender Extremities: Negative Homans sign Assessment and Plan (1) Menorrhagia Status: Acute Code(s): N92.0 - EXCESSIVE AND FREQUENT MENSTRUATION WITH REGULAR CYCLE SNOMED Code(s): 593232409 (2) Endometrial polyp Status: Acute Code(s): N84.0 - POLYP OF CORPUS UTERI SNOMED Code(s): 02403740 Plan: 1. D&C, polypectomy, hysteroscopy, endometrial ablation with NovaSure
[~2022-01-12 06:08] MED LIST changes: -ACETAMINOPHEN TAB 500 MG TAB PO PRN; +DEXAMETHASONE SOD PHOSPHATE 4 MG/ML 1 ML VIAL IV ONE; -HEPARIN SODIUM,PORCINE/PF 5,000 UNIT/0.5 ML SYRINGE SQ PRN; +LACTATED RINGERS 1,000 ML IV SCH; +LIDOCAINE 1% (10MG/ML) FOR IV START INTRADERMA PRN; +ONDANSETRON 4 MG/2 ML VIAL IVP ONE; +Pre Op ABX Message 1 EACH MISC MISCELLANE ONE; -metroNIDAZOLE-NS PMX 500 MG in SALINE 1 100ML.BAG IVPB PRN
[2022-01-12] MEDS ORDERED: SCOPOLAMINE 1 MG/72 HR PATCH TRANSDERM ONE (06:58)
[2022-01-12] MEDS ORDERED: HYDROmorphone 0.5 MG/0.5 ML SYRINGE IVP PRN (07:00)
[2022-01-12] MEDS ORDERED: PROPOFOL 10 MG/ML 20 ML VIAL IV ONE (07:23)
[2022-01-12] MEDS ORDERED: LIDOCAINE 2% INJ 20 MG/ML (2 ML VIAL) ONE (07:23)
[2022-01-12] MEDS ORDERED: KETOROLAC 15 MG/ML 1 ML VIAL ONE (07:23)
[2022-01-12] MEDS ORDERED: fentaNYL (PF) 50 MCG/ML 2 ML AMP ONE (07:23)
[2022-01-12] MEDS ORDERED: MIDAZOLAM 2 MG/2 ML VIAL ONE (07:23)
[2022-01-12 08:03] VITALS: TEMP 97.2
--- NOTE | 2022-01-12 08:04 | P.OP ---
Date of Procedure: 01/12/22 Preoperative Diagnosis: 1. menorrhagia 2. endometrial polyp Postoperative Diagnosis: 1. menorrhagia 2. endometrial polyp Procedure(s) Performed: D&C, polypectomy, hysteroscopy, endometrial ablation with NovaSure Anesthesia: MAC Surgeon: Damaris Ring Estimated Blood Loss (ml): 2 IV fluids (ml): 300 Urine output (ml): 50 Pathology: other (Polyp and endometrial curettings) Condition: stable Disposition: PACU Operative Findings: Small polyp on the anterior portion of the uterus in the lower uterine segment. Otherwise the contour of the uterus was smooth and both ostia visualized. The cavity length was 6.5 cm, width 4 cm, time of ablation 51 seconds at [address]. Adequate ablation after NovaSure Description of Procedure: Patient is taken the operating room where general anesthesia was obtained wes gaitan. She was prepped and draped in normal sterile fashion dorsal lithotomy position, legs placed in the candy cane stirrups. Bladder was drained of all urine. Weighted speculum placed in the vagina and the anterior lip the cervix was grasped with serial tooth tenaculum. The uterus sounded to 8.5 cm and the cervix under 2 cm making the cavity length 6.5 cm. The cervix was dilated to #8 Hegar dilator. Hysteroscopy was then performed. Both ostia were visualized and there was a smooth contour of the uterus apart from one small polyp in the lower uterine segment attached to the anterior portion of the uterus. Polyp forceps were used to remove this polyp. Sharp curet was then gently used to obtain endometrial curettings. The NovaSure was introduced into the uterus with a cavity length of 6.5 cm, width 4 cm. after cavity assessment was passed, the time of ablation was 51 seconds at [address]. Hysteroscopy was again performed and adequate ablation was noted. All instruments removed from the vagina. Patient tolerated the procedure well, sponge and instrument counts were correct 2 and she was taken to recovery in stable condition.
[2022-01-12] MEDS ORDERED: HYDROmorphone 0.5 MG/0.5 ML SYRINGE IVP ONE (08:53)
[2022-01-12 09:28] VITALS: BP 132/85; PULSE 59; RESP 14
== END 2022-01-12 09:41 | disposition home or self-care (01) ==
LOC: OR 06:08
PROVIDERS: ATTEND Obstetrics & Gynecology
DX: N92.0 Excessive and frequent menstruation with regular cycle (principal); N84.0 Polyp of corpus uteri; D64.9 Anemia, unspecified; Z98.891 History of uterine scar from previous surgery; Z98.890 Other specified postprocedural states; Z83.49 Family history of other endocrine, nutritional and metabolic diseases; Z87.891 Personal history of nicotine dependence; Z88.0 Allergy status to penicillin
CPT/HCPCS: 81025; 88305; 58563; J2250; J1100; J2405; J3010; J1885; J2704; J1170; J2001